=== PATIENT | male | born 1965 ===

== ENCOUNTER 2021-11-15 06:00 | Outpatient (RCR) | payer OTHER, SELFPAY | END 2021-11-19 23:59 | disposition home or self-care (01) | LOC: SPT 06:00 | PROVIDERS: PCP Emergency Medicine Emergency Medical Services; Visit Provider Emergency Medicine Emergency Medical Services | DX: R26.89 Other abnormalities of gait and mobility (principal); G89.4 Chronic pain syndrome; M25.559 Pain in unspecified hip; M25.569 Pain in unspecified knee | CPT/HCPCS: 97110; 97162 ==

== ENCOUNTER 2021-11-20 06:00 | Outpatient (RCR) | payer OTHER, SELFPAY | END 2021-12-20 23:59 | disposition home or self-care (01) | LOC: SPT 06:00 | PROVIDERS: PCP Emergency Medicine Emergency Medical Services; Visit Provider Emergency Medicine Emergency Medical Services | DX: G89.4 Chronic pain syndrome (principal) | CPT/HCPCS: 97110 ==

== ENCOUNTER 2021-12-21 06:00 | Outpatient (RCR) | payer OTHER, SELFPAY | END 2022-01-19 23:59 | disposition home or self-care (01) | LOC: SPT 06:00 | PROVIDERS: PCP Emergency Medicine Emergency Medical Services; Visit Provider Emergency Medicine Emergency Medical Services | DX: G89.4 Chronic pain syndrome (principal) | CPT/HCPCS: 97110 ==

== ENCOUNTER 2022-01-20 06:00 | Outpatient (RCR) | payer OTHER, SELFPAY | END 2022-02-19 23:59 | disposition home or self-care (01) | LOC: SPT 06:00 | PROVIDERS: PCP Emergency Medicine Emergency Medical Services; Visit Provider Emergency Medicine Emergency Medical Services | DX: G89.4 Chronic pain syndrome (principal) | CPT/HCPCS: 97110 ==

== ENCOUNTER → 2022-10-10 14:49 | Outpatient (BNVA) | payer OTHER, SELFPAY | PROVIDERS: PCP Emergency Medicine Emergency Medical Services; Visit Provider Nurse Practitioner Family | DX: L81.1 Chloasma (principal); L74.519 Primary focal hyperhidrosis, unspecified; L91.8 Other hypertrophic disorders of the skin; D18.01 Hemangioma of skin and subcutaneous tissue; L81.4 Other melanin hyperpigmentation; L85.3 Xerosis cutis; L57.8 Other skin changes due to chronic exposure to nonionizing radiation | CPT/HCPCS: 99214 ==